=== PATIENT | male | born 1980 | race African-American/Black ===

== ENCOUNTER 2019-03-05 21:59 | Emergency (ER) | payer MEDICAID ==
[~2019-03-05] VITALS: Ht 172.7 cm; Wt 68.0 kg
[2019-03-05] MEDS ORDERED: LORAZEPAM 2MG/ML CPJ IM STA (22:43)
[2019-03-05] MEDS ORDERED: OLANZAPINE 10 MG/VIAL IM STA (22:43)
[2019-03-05] MEDS ORDERED: TETANUS, DIPHTHERIA, PERTUSSIS VAC/PF 0.5ML (>7YR OLD) IM ONE (22:45)
[2019-03-05] MEDS ORDERED: BACITRACIN ZINC OINT UDPKT TOP ONE (22:45)
[2019-03-05 22:58] LABS: CLARITY URINE CLEAR (CLEAR); COLOR URINE YELLOW (YELLOW); KETONES URINE NEGATIVE (NEGATIVE); LEUKOCYTE ESTERASE URINE NEGATIVE (NEGATIVE); NITRITE URINE NEGATIVE (NEGATIVE); OCCULT BLOOD URINE NEGATIVE (NEGATIVE); PH URINE 5.5 (4.5-8.0); PROTEIN URINE NEGATIVE (NEGATIVE); SPECIFIC GRAVITY URINE 1.003 (1.005-1.030); UROBILINOGEN URINE 0.2 E.U./dL (0.2-1.0)
[2019-03-05 23:16] LABS: *AMPHETAMINES SCREEN URINE NEGATIVE (NEGATIVE); *BARBITURATES SCREEN URINE NEGATIVE (NEGATIVE); *BENZODIAZEPINES SCREEN URINE NEGATIVE (NEGATIVE); *COCAINE SCREEN URINE NEGATIVE (NEGATIVE); METHADONE URINE SCREEN NEGATIVE (NEGATIVE)
[2019-03-05 23:17] LABS: CANNABINOID URINE SCREEN NEGATIVE (NEGATIVE); OPIATES URINE SCREEN PRESUMTIVE POSITIVE (NEGATIVE); PHENCYCLIDINE URINE SCREEN NEGATIVE (NEGATIVE)
[2019-03-05 23:34] LABS: BASOPHILS % 1.3 % (0.0-2.0); HEMATOCRIT. 51.9 % (42.0-52.0); HEMOGLOBIN. 17.6 g/dL (14.0-18.0); LYMPHOCYTES % 54.9 % (20.0-50.0); MEAN CORPUSCULAR HEMOGLOBIN 32.2 pg (28.0-32.0); MEAN CORPUSCULAR VOLUME 94.6 fL (80.0-94.0); MEAN PLATELET VOLUME 9.1 fl (7.4-10.4); MONOCYTES % 10.5 % (2.0-8.0); NEUTROPHILS % 32.3 % (40.0-76.0); PLATELET 152 x1000/uL (130-400); RED BLOOD CELL COUNT 5.48 mill/uL (4.7-6.1); RED CELL DISTRIBUTION WIDTH 12.7 % (11.6-14.6)
[2019-03-05 23:43] LABS: CHLORIDE 105 mEq/L (98-107)
[2019-03-05 23:48] LABS: ETHANOL BLOOD 235 mg/dL
[2019-03-05 23:51] LABS: CREATINE KINASE 184 IU/L (39-308)
[2019-03-06] MEDS ORDERED: BACITRACIN 15GM TUBE TOP ONE (10:30)
[2019-03-06 10:42] VITALS: BP 110/68
== END 2019-03-06 10:46 | disposition home or self-care (01) ==
LOC: ER 21:59
DX: S11.81XA Laceration without foreign body of other specified part of neck, initial encounter (principal); S61.512A Laceration without foreign body of left wrist, initial encounter; S61.511A Laceration without foreign body of right wrist, initial encounter; X78.9XXA Intentional self-harm by unspecified sharp object, initial encounter; T42.4X2A Poisoning by benzodiazepines, intentional self-harm, initial encounter; T45.0X2A Poisoning by antiallergic and antiemetic drugs, intentional self-harm, initial encounter; T39.312A Poisoning by propionic acid derivatives, intentional self-harm, initial encounter; R41.82 Altered mental status, unspecified; F10.129 Alcohol abuse with intoxication, unspecified; Y90.7 Blood alcohol level of 200-239 mg/100 ml; Y93.89 Activity, other specified; Y92.89 Other specified places as the place of occurrence of the external cause; Z78.1 Physical restraint status; Z23 Encounter for immunization
CPT/HCPCS: 12004; 36415; 80053; 80305; 80307; 80320; 80329; 81003; 82550; 84443; 85025; 90471; 90715; 93005; 96372; 99284; J2060; J3490; Z7610; G0480